=== PATIENT | male | born 1975 | race Two or more races ===

== ENCOUNTER 2016-10-04 11:28 | Emergency (ER) | payer MEDICAID ==
[~2016-10-04] VITALS: Ht 182.9 cm; Wt 89.4 kg
[~2016-10-04 11:28] MED LIST: AZI250T PO; TAM04C PO
[2016-10-04 15:40] LABS: Basophils # (auto) 0 uL; Basophils % (auto) 0.1 % (0.0-2.0); Eosinophils # (auto) 0.1 uL; Eosinophils % (auto) 0.4 % (0.0-7.0); Hemoglobin 15.2 g/dL (13.5-17.5); Lymphocytes # (auto) 2.5 uL; Lymphocytes % (auto) 9.8 % (10.0-50.0); Mean Corpuscular Hemoglobin 29.2 pg (28.0-32.0); Mean Corpuscular Hgb Conc. 33.8 g/dL (32.0-36.0); Mean Corpuscular Volume 86.3 fL (80.0-100.0); Mean Platelet Volume 8.2 fL (7.4-10.4); Monocytes # (auto) 1.3 uL; Neutrophils # (auto) 21.3 uL; Neutrophils % (auto) 84.7 % (37.0-80.0); Platelet Count (auto) 330 10^3/uL (140-450); Red Cell Distribution Width 15.3 % (11.6-16.0); White Blood Cell 25.2 10^3/uL (4.4-10.8)
[2016-10-04 15:50] LABS: INR 1.01 (0.9-1.15); Prothrombin Time 10.4 sec (9.37-12.3)
[2016-10-04 15:58] LABS: Albumin 3.8 g/dL (3.4-5.0); Bilirubin, Total 0.4 mg/dL (0.2-1.0); Calcium 8.9 mg/dL (8.5-10.1); Potassium 4.3 mmol/L (3.5-5.1); Total Protein 8.4 g/dL (6.4-8.2)
[2016-10-04] MEDS ORDERED: IOHEXOL 300 MG/ML 100ML BOTTLE IJ ONE (16:11)
[2016-10-04 16:13] LABS: Urine Bilirubin Negative (Negative); Urine Blood TRACE /uL (Negative); Urine Color Yellow (Yellow); Urine Glucose Normal (Normal); Urine Ketone Negative (Negative); Urine Nitrite Negative (Negative); Urine RBC 10 /hpf (0 - 3); Urine Squamous Epithelial Cell FEW /hpf (<5); Urine Urobilinogen Normal (Negative); Urine pH 5.5 (5.0-8.0)
[2016-10-04] MEDS: SODIUM CHLORIDE 0.9% 1,000 ML IV ONE (16:35)
[2016-10-04 17:25] VITALS: BP 129/82
[2016-10-04] MEDS: MORPHINE SULF INJ 2 MG/ML SYRINGE 1ML IV ONE (17:41)
[2016-10-04] MEDS: ONDANSETRON HCL 4 MG/2 ML VIAL IV ONE (17:41)
[2016-10-04] MEDS: cefTRIAXone 1GM/50ML D5W 50 ML IV ONE (17:59)
== END 2016-10-04 18:40 | disposition home or self-care (01) ==
LOC: ER 11:28
DX: J03.90 Acute tonsillitis, unspecified (principal); F17.210 Nicotine dependence, cigarettes, uncomplicated; R51 Headache; Z87.442 Personal history of urinary calculi; Z90.49 Acquired absence of other specified parts of digestive tract
CPT/HCPCS: 36415; 70491; 80053; 81001; 85025; 85610; 85730; 87040; 94761; 96361; 96365; 96375; 99285; J2270; J2405; J7030; Q9967